=== PATIENT | male | born 1960 | race Caucasian/White ===

== ENCOUNTER → 2023-04-17 10:27 | Outpatient (REF) | payer OTHER, SELFPAY ==
[2023-04-17 11:59] LABS: HDL Cholesterol 41 mg/dl; LDL Cholesterol, Calculated 131 mg/dl; Total Cholesterol 211 mg/dl (50-199); Triglyceride 195 mg/dl (10-149); Very Low Density Lipoprotein 39 mg/dl (0-30)
[2023-04-17 12:28] LABS: PSA, Total - Screen 3.06 ng/ml (0.0-4.0)
== END ==
LOC: REG 10:27
PROVIDERS: ATTENDING PHYSICIAN Family Medicine
DX: E78.00 Pure hypercholesterolemia, unspecified (principal); R97.20 Elevated prostate specific antigen [PSA]
CPT/HCPCS: 36415; 80061; G0103

== ENCOUNTER → 2023-11-20 10:48 | Outpatient (REF) | payer OTHER, SELFPAY | LOC: RAD 10:48 | PROVIDERS: ATTENDING PHYSICIAN Family Medicine | DX: M54.17 Radiculopathy, lumbosacral region (principal) | CPT/HCPCS: 72110 ==

== ENCOUNTER → 2023-12-12 07:53 | Outpatient (REF) | payer OTHER, SELFPAY ==
[2023-12-12 09:16] LABS: ALT (SGPT) 35 U/L (0-50); AST (SGOT) 36 U/L (17-59); Albumin 4.6 g/dl (3.5-5.0); Alkaline Phosphatase 53 U/L (38-126); Blood Urea Nitrogen 14 mg/dl (9-20); Calcium 9.7 mg/dl (8.4-10.2); Carbon Dioxide 25 mmol/L (22-30); Chloride 103 mmol/L (98-107); Glucose 108 mg/dl (70-99); HDL Cholesterol 38 mg/dl; LDL Cholesterol, Calculated 141 mg/dl; Potassium 4.8 mmol/L (3.5-5.1); Sodium 141 mmol/L (135-145); Total Cholesterol 225 mg/dl (50-199); Total Protein 7.2 g/dl (6.3-8.2); Triglyceride 233 mg/dl (10-149); Very Low Density Lipoprotein 46 mg/dl (0-30); eGFR > 60.00
== END ==
LOC: REG 07:53
PROVIDERS: ATTENDING PHYSICIAN Family Medicine
DX: E78.00 Pure hypercholesterolemia, unspecified (principal); Z13.228 Encounter for screening for other metabolic disorders
CPT/HCPCS: 36415; 80053; 80061

== ENCOUNTER → 2023-12-17 14:07 | Outpatient (REF) | payer OTHER, SELFPAY | LOC: PAVMRI 14:07 | PROVIDERS: ATTENDING PHYSICIAN Family Medicine | DX: M54.17 Radiculopathy, lumbosacral region (principal); M54.50 Low back pain, unspecified; M79.605 Pain in left leg | CPT/HCPCS: 72148 ==

== ENCOUNTER 2024-03-05 07:08 | Outpatient (RCR) | payer OTHER, SELFPAY | END 2024-03-05 23:59 | disposition home or self-care (01) | LOC: RPT 07:08 | PROVIDERS: ATTENDING PHYSICIAN Family Medicine | DX: M54.17 Radiculopathy, lumbosacral region (principal); Z73.6 Limitation of activities due to disability; M62.81 Muscle weakness (generalized); M79.604 Pain in right leg | CPT/HCPCS: 97110; 97112; 97162 ==

== ENCOUNTER 2024-04-02 06:58 | Outpatient (RCR) | payer OTHER, SELFPAY | END 2024-04-02 23:59 | disposition home or self-care (01) | LOC: RPT 06:58 | PROVIDERS: ATTENDING PHYSICIAN Family Medicine | DX: M54.17 Radiculopathy, lumbosacral region (principal); Z73.6 Limitation of activities due to disability; M62.81 Muscle weakness (generalized); M79.604 Pain in right leg | CPT/HCPCS: 97110; 97112 ==

== ENCOUNTER → 2024-12-02 08:56 | Outpatient (REF) | payer OTHER, SELFPAY ==
[2024-12-02 10:16] LABS: ALT (SGPT) 31 U/L (0-50); AST (SGOT) 30 U/L (17-59); Albumin 4.5 g/dl (3.5-5.0); Alkaline Phosphatase 53 U/L (38-126); Blood Urea Nitrogen 14 mg/dl (9-20); Calcium 9.4 mg/dl (8.4-10.2); Carbon Dioxide 26 mmol/L (22-30); Chloride 106 mmol/L (98-107); Glucose 111 mg/dl (70-99); HDL Cholesterol 40 mg/dl; LDL Cholesterol, Calculated 146 mg/dl; Potassium 4.7 mmol/L (3.5-5.1); Sodium 138 mmol/L (135-145); Total Protein 7.2 g/dl (6.3-8.2); Very Low Density Lipoprotein 44 mg/dl (0-30); eGFR > 60.00
[2024-12-02 10:43] LABS: PSA, Total - Screen 4.02 ng/ml (0.0-4.0)
== END ==
LOC: REG 08:56
PROVIDERS: ATTENDING PHYSICIAN Family Medicine
DX: E78.00 Pure hypercholesterolemia, unspecified (principal); E78.2 Mixed hyperlipidemia; Z82.49 Family history of ischemic heart disease and other diseases of the circulatory system; Z12.5 Encounter for screening for malignant neoplasm of prostate; Z79.899 Other long term (current) drug therapy
CPT/HCPCS: 36415; 80053; 80061; G0103